=== PATIENT | male | born 1990 | race Caucasian/White ===

== ENCOUNTER 2018-02-10 14:05 | Emergency (ER) | payer OTHER ==
[2018-02-10 14:42] VITALS: BP 137/88
--- NOTE | 2018-02-10 15:04 | UC ---
Abdominal Pain Male HPI - HPI Summary HPI Summary: Patient is a 27-year-old male that has had a 6 week history of what was initially intermittent left lower quadrant abdominal pain. Shortly the pain was more of an annoyance than a true pain. Initially the pain was intermittent. So had some intermittent left testicular pain. He has had no UTI symptoms. No change in his bowel habits. Last 5-6 days the pain has become constant. Pain is also worsened. Seen at [facility] 2 days ago and had a urinalysis performed. It was reportedly normal. His pain has increased since then. Some pain he has had is a 6 out of 10. Currently 4 out of 10. No nausea vomiting or diarrhea. Has had no fever or chills. - History of Current Complaint Chief Complaint: UCGI Stated Complaint: ABD PAIN Time Seen by Provider: 02/10/18 14:54 Hx Obtained From: Patient Onset/Duration: Gradual Onset, Lasting Weeks Severity Initially: Mild Severity Currently: Moderate Pain Intensity: 4 - 6 at max Pain Scale Used: 0-10 Numeric Location: Discrete At: LLQ Radiates: Yes Radiates to: Inguinal - left testicle Character: Aching Aggravating Factor(s): Nothing Alleviating Factor(s): Meds Associated Signs And Symptoms: Positive: Negative Male Reproductive: 1 - pain here, ?lump 2 - radiates here - Allergies/Home Medications Allergies/Adverse Reactions: Allergies Allergy/AdvReac Type Severity Reaction Status Date / Time No Known Allergies Allergy Verified 02/10/18 14:43 Home Medications: Home Medications Finasteride TAB* [Proscar TAB*] 1.25 mg PO DAILY 02/10/18 [History Confirmed ] Ibuprofen TAB* [Motrin TAB* 600 MG] 600 mg PO Q8H PRN 02/10/18 [History Confirmed 02/10/18] PMH/Surg Hx/FS Hx/Imm Hx Previously Healthy: Yes - Surgical History Surgical History: Yes Surgery Procedure, Year, and Place: Devuated septum repair - Family History Known Family History: Positive: Hypertension, Other - dad with kidney stones Negative: Cardiac Disease, Diabetes - Social History Alcohol Use: Occasionally Substance Use Type: Marijuana Substance Use Comment - Amount & Last Used: q 2 months Smoking Status (MU): Never Smoked Tobacco Review of Systems Constitutional: Negative Skin: Negative Eyes: Negative ENT: Negative Respiratory: Negative Cardiovascular: Negative Gastrointestinal: Abdominal Pain Genitourinary: Negative Motor: Negative Neurovascular: Negative Musculoskeletal: Negative Neurological: Negative Psychological: Negative All Other Systems Reviewed And Are Negative: Yes Physical Exam Triage Information Reviewed: Yes Appearance: Well-Appearing, No Pain Distress, Well-Nourished Vital Signs: Initial Vital Signs Temp 98.8 F 02/10/18 14:35 Pulse 78 02/10/18 14:35 Resp 16 02/10/18 14:35 BP 137/88 02/10/18 14:35 Pulse Ox 99 02/10/18 14:35 Eye Exam: Normal Eyes: Positive: Conjunctiva Clear ENT: Positive: Hearing grossly normal. Negative: Nasal congestion, Nasal drainage, Trismus, Muffled voice, Hoarse voice Neck: Positive: Supple, Nontender Respiratory: Positive: Lungs clear, Normal breath sounds, No respiratory distress, No accessory muscle use Cardiovascular: Positive: RRR, No Murmur Abdomen Description: Positive: No Organomegaly, Other: - See image/tender here/ patient appreciates swelling here. Negative: Nontender, CVA Tenderness (R), CVA Tenderness (L), Distended, Guarding Male Genital Exam: Positive: Normal Genitalia, No Hernia, Other - tender left inguinal cord/vas. Negative: Epididymal Tenderness Musculoskeletal Exam: Normal Musculoskeletal: Positive: ROM Intact, No Edema Neurological: Positive: Alert Psychological Exam: Normal Skin Exam: Normal Diagnostics - Laboratory Diagnostic Studies Completed/Ordered: UA (-) Abd Pain Male Course/Dx - Differential Dx/Clinical Impression Provider Diagnoses: abdominal pain of uncertain cause Discharge - Sign-Out/Discharge Documenting (check all that apply): Patient Departure All imaging exams completed and their final reports reviewed: No Studies - Discharge Plan Condition: Stable Disposition: HOME Patient Education Materials: Acute Abdominal Pain (DC) Referrals: Patel Tolbert MD [Medical Doctor] - As Soon As Possible Rodrigo Palmer MD [Medical Doctor] - If Needed (urologist) Additional Instructions: To ER for new or worsening symptoms - Billing Disposition and Condition Condition: STABLE Disposition: Home
== END 2018-02-10 15:43 | disposition home or self-care (01) ==
LOC: UCEAST 14:05
DX: R10.32 Left lower quadrant pain (principal)
CPT/HCPCS: 81003; 99201; G0463